=== PATIENT | male | born 1965 | race Caucasian/White ===

== ENCOUNTER → 2017-03-28 | Outpatient (CLI) | payer BC ==
--- NOTE | 2017-03-28 16:49 | Diagnostic Imaging Report ---
CLINICAL INDICATION: Patient did heavy lifting on 03/11/2017. Patient has low back pain since. No leg pain. EXAM: MRI of the lumbar spine performed without IV contrast. Sagittal T2, sagittal T1, sagittal T2 fat-sat, and axial T2. COMPARISON: None. FINDINGS: Lumbar spine has normal alignment with no fracture or dislocation. Besides minimal degenerative changes, the lumbar vertebrae have normal T1 and T2 signal. The visualized portions of the distal spinal cord, conus medullaris, and cauda equina have normal anatomic appearance. The conus medullaris tip is seen at the L1-L2 intervertebral level. No paraspinal soft tissue abnormality is seen. There is no significant central spinal canal or neural foramen narrowing. There are small spurs scattered throughout the lumbar spine. The intervertebral disk spaces are well-preserved. L1-L2: There is a small posterior disc bulge and small anterior disc spurs. There is no significant central spinal canal or neural foramen narrowing. L2-L3: Unremarkable. L3-L4: Unremarkable. L4-L5: There are minimal Modic type II degenerative signal changes seen involving the superior and anterior aspects of the L5 vertebral body. Otherwise, this level is unremarkable. L5-S1: Unremarkable. IMPRESSION: Minimal lumbar spine degenerative disease including small L1-L2 posterior disc bulge. The lumbar spine shows no significant central spinal canal or neural foramen narrowing. Dictated by: Dictated on workstation # [id number]
== END ==
LOC: RAD 15:35
PROVIDERS: ATTEND Orthopaedic Surgery
DX: M51.26 Other intervertebral disc displacement, lumbar region (principal); M54.32 Sciatica, left side; X50.0XXA Overexertion from strenuous movement or load, initial encounter
CPT/HCPCS: 72148